=== PATIENT | female | born 1960 | race Caucasian/White ===

== ENCOUNTER 2017-04-17 11:40 | Emergency (ER) | payer OTHER ==
[~2017-04-17] VITALS: Ht 167.6 cm; Wt 97.3 kg
[2017-04-17] MEDS ORDERED: ENAL2.5T PO (11:54)
[2017-04-17] MEDS ORDERED: HYDR12.55 PO (11:54)
[2017-04-17] MEDS ORDERED: OMEP10CASR PO (11:54)
[2017-04-17] MEDS ORDERED: METO37.5 PO (11:55)
[2017-04-17 13:41] LABS: MEAN CORPUSCULAR HEMOGLOBIN 35.1 pg (27.0-33.0); MEAN CORPUSCULAR HGB CONC 35.5 g/dl (32.0-36.5); MEAN CORPUSCULAR VOLUME 98.9 fl (80.0-96.0); RED CELL DISTRIBUTION WIDTH 13.9 % (11.5-14.5); WHITE BLOOD COUNT 6.3 K/mm3 (4.0-10.0)
[2017-04-17 14:05] LABS: CONTROL LINE HCG INT CTR LINE PRESENT
[2017-04-17 14:19] LABS: ALBUMIN 4.2 GM/DL (3.2-5.2); ALBUMIN/GLOBULIN RATIO 1.14 (1.00-1.93); ALKALINE PHOSPHATASE 131 U/L (45-117); ALT/SGPT 26 U/L (12-78); ANION GAP 11 MEQ/L (8-16); AST/SGOT 28 U/L (15-37); BILIRUBIN,DIRECT 0.4 MG/DL (0.0-0.2); BILIRUBIN,TOTAL 1.4 MG/DL (0.2-1.0); BLOOD UREA NITROGEN 10 MG/DL (7-18); CALCIUM LEVEL 9.5 MG/DL (8.5-10.1); CARBON DIOXIDE LEVEL 26 MEQ/L (21-32); CHLORIDE LEVEL 91 MEQ/L (98-107); CREATININE FOR GFR 0.92 MG/DL (0.55-1.02); GLOMERULAR FILTRATION RATE > 60.0 (>51); GLUCOSE, FASTING 153 MG/DL (70-105); POTASSIUM SERUM 3.7 MEQ/L (3.5-5.1); SODIUM LEVEL 128 MEQ/L (136-145); T UPTAKE 34 % (30-39); THYROXINE (T4) 8.2 UG/DL (4.5-12.0); TOTAL PROTEIN 7.9 GM/DL (6.4-8.2)
--- NOTE | 2017-04-17 15:11 | REP ---
Chest two views HISTORY: Weakness Comparison: 10/21/2008 The lungs are clear. The heart is normal in size. The pulmonary vasculature is normal in appearance. The bony structure is intact. IMPRESSION: No acute disease. Signed by Pawel Dubois MD 04/17/2017 03:03 P
[2017-04-17] MEDS ORDERED: HYDR-3363 PO ×2 (15:16→15:51)
[2017-04-17 15:33] LABS: METHADONE URINE NEGATIVE (NEGATIVE)
[2017-04-17 16:03] VITALS: BP 160/100
== END 2017-04-17 16:04 | disposition home or self-care (01) ==
LOC: M ED 11:40
DX: F41.9 Anxiety disorder, unspecified (principal); G47.00 Insomnia, unspecified; E87.1 Hypo-osmolality and hyponatremia; D69.3 Immune thrombocytopenic purpura; M54.9 Dorsalgia, unspecified; I10 Essential (primary) hypertension; J45.909 Unspecified asthma, uncomplicated; Z87.891 Personal history of nicotine dependence; Z79.899 Other long term (current) drug therapy
CPT/HCPCS: 36415; 71020; 80048; 80076; 80307; 84436; 84443; 84479; 84703; 85027; 99282; G0480

== ENCOUNTER → 2018-06-24 | Outpatient (REF) | payer OTHER ==
[2018-06-24 18:13] LABS: BASO % 0.7 % (0.0-1.0); EOS # 0.4 10^3/uL (0.0-0.50); HEMOGLOBIN 10.8 g/dl (12.0-15.5); IMMATURE GRANULOCYTE % 0.5 % (0-3.0); LYMPH # 1.1 10^3/uL (1.5-4.5); LYMPH % 25.5 % (24.0-44.0); MEAN CORPUSCULAR HEMOGLOBIN 34.2 pg (27.0-33.0); MEAN CORPUSCULAR HGB CONC 33.8 g/dl (32.0-36.5); MEAN CORPUSCULAR VOLUME 101.3 fl (80.0-96.0); MONO # 0.5 10^3/uL (0.0-0.8); MONO % 10.9 % (0.0-5.0); NEUTROPHILS # 2.2 10^3/uL (1.8-7.7); NEUTROPHILS % 52.4 % (36.0-66.0); PLATELET COUNT, AUTOMATED 256 10^3/uL (150-450); RED BLOOD COUNT 3.16 10^6/uL (4.00-5.40); RED CELL DISTRIBUTION WIDTH 13.6 % (11.5-14.5); WHITE BLOOD COUNT 4.1 10^3/uL (4.0-10.0)
[2018-06-24 18:22] LABS: ESTIMATED AVERAGE GLUCOSE 131 MG/DL (60-110); HEMOGLOBIN A1c 6.2 %
[2018-06-24 18:24] LABS: ALBUMIN 3.6 GM/DL (3.2-5.2); ALBUMIN/GLOBULIN RATIO 1.13 (1.00-1.93); ALKALINE PHOSPHATASE 95 U/L (45-117); ALT/SGPT 47 U/L (12-78); ANION GAP 6 MEQ/L (8-16); AST/SGOT 60 U/L (7-37); BILIRUBIN,TOTAL 0.4 MG/DL (0.2-1.0); BLOOD UREA NITROGEN 15 MG/DL (7-18); CALCIUM LEVEL 8.6 MG/DL (8.5-10.1); CARBON DIOXIDE LEVEL 30 MEQ/L (21-32); CHLORIDE LEVEL 103 MEQ/L (98-107); CHOLESTEROL LEVEL 180 MG/DL (<200); CHOLESTEROL RISK RATIO 2.195 (<5); CREATININE FOR GFR 0.73 MG/DL (0.55-1.30); FERRITIN 32 NG/ML (8-252); FREE T4 1.01 NG/DL (0.76-1.46); GLOMERULAR FILTRATION RATE > 60.0 (>51); GLUCOSE, FASTING 120 MG/DL (70-100); HDL CHOLESTEROL 82 MG/DL (>40); IRON (FE) 66 UG/DL (50-170); LDL CHOLESTEROL 76 MG/DL (<100); MAGNESIUM LEVEL 2.1 MG/DL (1.8-2.4); NON-HDL-C 98 MG/DL; PERCENT SATURATION 24.8 % (13.2-45.0); POTASSIUM SERUM 4.7 MEQ/L (3.5-5.1); RHEUMATOID FACTOR QUANT < 10.0 IU/ML (<15.0); SODIUM LEVEL 139 MEQ/L (136-145); TOTAL IRON BINDING CAPACITY 266 UG/DL (250-450); TOTAL PROTEIN 6.8 GM/DL (6.4-8.2); TRIGLYCERIDES LEVEL 111 MG/DL (<150)
[2018-06-24 18:29] LABS: FOLATE 1.5 NG/ML
[2018-06-24 18:32] LABS: CREATININE, URINE 28.9 MG/DL; MALB URINE SIEMENS < 5.0 MG/L
[2018-06-24 18:49] LABS: MAU/CREAT RATIO 17.3 MCG/MG (0.0-30.0)
[2018-06-24 20:46] LABS: ERYTHROCYTE SEDIMENTATION RATE 47 mm/hr (0-30)
[2018-06-29 14:13] LABS: ANTI DOUBLE STRAND-DNA AB 1 IU/mL (0-9); ANTINUCLEAR ANTIBODIES DIRECT Positive (Negative); Lyme Disease IgG/IgM Antibodie <0.91 ISR (0.00-0.90); Lyme Disease IgM Ab Quantitati <0.80 index (0.00-0.79); RNP ANTIBODIES <0.2 AI (0.0-0.9); SJOGREN'S ANTI SS-A 5.6 AI (0.0-0.9); SJOGREN'S ANTI SS-B <0.2 AI (0.0-0.9); SMITH ANTIBODIES <0.2 AI (0.0-0.9)
== END ==
LOC: M SFHCCAPE 09:40
DX: M19.90 Unspecified osteoarthritis, unspecified site (principal); I10 Essential (primary) hypertension; E66.01 Morbid (severe) obesity due to excess calories; E11.69 Type 2 diabetes mellitus with other specified complication; Z98.84 Bariatric surgery status; M25.561 Pain in right knee; M25.562 Pain in left knee

== ENCOUNTER → 2018-10-01 | Outpatient (REF) | payer OTHER ==
[~2018-10-01] MED LIST: ENAL2.5T PO; HYDR-3363 PO; HYDR12.55 PO; METO37.5 PO; OMEP10CASR PO
[2018-10-01 13:10] LABS: BASO % 0.7 % (0.0-1.0); EOS # 0.6 10^3/uL (0.0-0.50); HEMATOCRIT 33.8 % (36.0-47.0); HEMOGLOBIN 11.6 g/dl (12.0-15.5); LYMPH # 0.8 10^3/uL (1.5-4.5); LYMPH % 13.5 % (24.0-44.0); MEAN CORPUSCULAR HGB CONC 34.3 g/dl (32.0-36.5); MONO # 0.9 10^3/uL (0.0-0.8); NEUTROPHILS # 3.3 10^3/uL (1.8-7.7); NEUTROPHILS % 58.4 % (36.0-66.0); PLATELET COUNT, AUTOMATED 261 10^3/uL (150-450); RED BLOOD COUNT 3.52 10^6/uL (4.00-5.40); WHITE BLOOD COUNT 5.6 10^3/uL (4.0-10.0)
[2018-10-01 13:19] LABS: ALBUMIN 3.5 GM/DL (3.2-5.2); ALT/SGPT 19 U/L (12-78); BILIRUBIN,TOTAL 0.5 MG/DL (0.2-1.0); BLOOD UREA NITROGEN 15 MG/DL (7-18); CALCIUM LEVEL 8.8 MG/DL (8.5-10.1); CARBON DIOXIDE LEVEL 29 MEQ/L (21-32); CHLORIDE LEVEL 94 MEQ/L (98-107); CREATININE FOR GFR 0.78 MG/DL (0.55-1.30); GLOMERULAR FILTRATION RATE > 60.0 (>51); GLUCOSE, FASTING 129 MG/DL (70-100); POTASSIUM SERUM 4.8 MEQ/L (3.5-5.1); SODIUM LEVEL 132 MEQ/L (136-145); TOTAL PROTEIN 6.9 GM/DL (6.4-8.2)
[2018-10-01 13:29] LABS: TOTAL 25(OH) VITAMIN D 6.2 NG/ML (30.0-100.0); VITAMIN B12 LEVEL 375 PG/ML
[2018-10-01 13:30] LABS: FOLATE > 24.0 NG/ML
[2018-10-01 13:40] LABS: HEMOGLOBIN A1c 6.8 %
== END ==
LOC: M SFHCADAM 08:36
PROVIDERS: ATTEND Physician Assistant Medical
DX: I10 Essential (primary) hypertension (principal); D52.8 Other folate deficiency anemias; D51.8 Other vitamin B12 deficiency anemias; E11.69 Type 2 diabetes mellitus with other specified complication; E55.9 Vitamin D deficiency, unspecified; D53.9 Nutritional anemia, unspecified

== ENCOUNTER → 2019-08-05 | Outpatient (REF) | payer BC ==
[2019-08-05 19:31] LABS: CALCIUM LEVEL 8.4 MG/DL (8.8-10.2); CREATININE FOR GFR 1.13 MG/DL (0.55-1.30); GLOMERULAR FILTRATION RATE 52.3 (>45); POTASSIUM SERUM 4.4 MEQ/L (3.5-5.1)
[2019-08-05 19:32] LABS: ALBUMIN 3.5 GM/DL (3.2-5.2); BILIRUBIN,TOTAL 0.3 MG/DL (0.2-1.0); CHOLESTEROL RISK RATIO 2.523 (<5); FREE T4 0.93 NG/DL (0.76-1.46); THYROID STIMULATING HORMONE 1.47 uIU/ML (0.358-3.740)
[2019-08-05 19:33] LABS: FOLATE 16.4 NG/ML
[2019-08-05 19:34] LABS: BASO % 0.6 % (0.0-1.0); EOS # 0.4 10^3/uL (0.0-0.5); EOS % 5.9 % (0.0-3.0); HEMATOCRIT 34.4 % (36.0-47.0); HEMOGLOBIN 10.9 g/dl (12.0-15.5); LYMPH # 1.2 10^3/uL (1.5-5.0); LYMPH % 18.5 % (24.0-44.0); MEAN CORPUSCULAR HEMOGLOBIN 30.8 pg (27.0-33.0); MEAN CORPUSCULAR HGB CONC 31.7 g/dl (32.0-36.5); MEAN CORPUSCULAR VOLUME 97.2 fl (80.0-96.0); MONO # 0.8 10^3/uL (0.0-0.8); MONO % 12.2 % (0.0-5.0); NEUTROPHILS # 4.2 10^3/uL (1.5-8.5); NEUTROPHILS % 62.5 % (36.0-66.0); PLATELET COUNT, AUTOMATED 284 10^3/uL (150-450); RED BLOOD COUNT 3.54 10^6/uL (4.00-5.40); WHITE BLOOD COUNT 6.7 10^3/uL (4.0-10.0)
[2019-08-05 20:52] LABS: HEMOGLOBIN A1c 7.1 %; MALB URINE SIEMENS 9.9 MG/L; MAU/CREAT RATIO 6.3 MCG/MG (0.0-30.0)
== END ==
LOC: M SFHCADAM 16:25
PROVIDERS: ATTEND Physician Assistant Medical
DX: I10 Essential (primary) hypertension (principal); E11.69 Type 2 diabetes mellitus with other specified complication; D51.8 Other vitamin B12 deficiency anemias; E55.9 Vitamin D deficiency, unspecified; D52.8 Other folate deficiency anemias

== ENCOUNTER → 2019-08-17 | Outpatient (CLI) | payer BC ==
[2019-08-17 20:24] LABS: PERCENT SATURATION 14.3 % (13.2-45.0)
== END ==
LOC: M WUC 16:35
PROVIDERS: ATTEND Physician Assistant Medical
DX: D51.8 Other vitamin B12 deficiency anemias (principal)

== ENCOUNTER → 2020-02-06 | Outpatient (REF) | payer BC | LOC: M SFHCADAM 13:44 | PROVIDERS: ATTEND Physician Assistant Medical | DX: D51.9 Vitamin B12 deficiency anemia, unspecified (principal) ==

== ENCOUNTER → 2020-02-17 | Outpatient (CLI) | payer BC ==
--- NOTE | 2020-02-17 13:49 | REP ---
REASON: Atraumatic bilateral shoulder pain. Three views of the right shoulder show moderate to severe hypertrophic degenerative changes seen involving the acromioclavicular joint with asymmetric narrowing and osteophytosis. The glenohumeral relationship is within normal limits. There is no acute fracture, dislocation, or subluxation. IMPRESSION: AC joint DJD. Three views of the left shoulder show more mild-appearing degenerative changes involving the acromioclavicular joint. The glenohumeral relationship is within normal limits. There is no fracture, dislocation, or subluxation. IMPRESSION: Chronic changes, as described above. Electronically Signed by Mando Johnston DO 02/17/2020 02:05 P
--- NOTE | 2020-02-17 13:55 | REP ---
REASON: Atraumatic bilateral hip pain . PRIORS: None. There is mild asymmetric hip joint space narrowing which appears symmetric bilaterally. There is no acute fracture, dislocation, or subluxation. There is no evidence of significant buttressing. Seen in the soft tissues left hip trochanteric region found best on the frog-lateral view, there is a amorphous calcification measuring 2.9 x 1.2 cm. IMPRESSION: 1. Bilateral hip degenerative changes as described above. 2. Calcifications in the soft tissues left hip as described above, possibly secondary to chronic trochanteric tendinobursitis. Consider followup with MRI. Electronically Signed by Mando Johnston DO 02/17/2020 02:05 P
--- NOTE | 2020-02-17 14:03 | REP ---
REASON: Bilateral pain. PRIORS: None. There is heavy tricompartmental marginal osteophytosis bilaterally seen in conjunction with rather severe appearing patellofemoral joint space narrowing asymmetrically bilaterally right greater than left. There is bilateral medial compartmental narrowing, which is mild to moderate with minimal lateral compartmental narrowing seen bilaterally. There is no evidence of an acute fracture. IMPRESSION: Chronic changes seen bilaterally as described above. Electronically Signed by Mando Johnston DO 02/17/2020 02:05 P
== END ==
LOC: M ADAMS 11:03
PROVIDERS: ATTEND Physician Assistant Medical
DX: E11.69 Type 2 diabetes mellitus with other specified complication (principal); M25.551 Pain in right hip; M25.552 Pain in left hip; M17.0 Bilateral primary osteoarthritis of knee; M79.89 Other specified soft tissue disorders; M25.761 Osteophyte, right knee; M25.762 Osteophyte, left knee; M19.012 Primary osteoarthritis, left shoulder

== ENCOUNTER → 2020-02-17 | Outpatient (REF) | payer BC ==
[2020-02-17 13:41] LABS: ALBUMIN 3.4 GM/DL (3.2-5.2); ALT/SGPT 28 U/L (12-78); BILIRUBIN,TOTAL 0.4 MG/DL (0.2-1.0); BLOOD UREA NITROGEN 21 MG/DL (7-18); C REACTIVE PROTEIN QUANTITATIV < 0.30 MG/DL (0.00-0.30); CALCIUM LEVEL 8.7 MG/DL (8.8-10.2); CARBON DIOXIDE LEVEL 27 MEQ/L (21-32); CHLORIDE LEVEL 105 MEQ/L (98-107); CREATININE FOR GFR 0.95 MG/DL (0.55-1.30); GLOMERULAR FILTRATION RATE > 60.0 (>45); GLUCOSE, FASTING 139 MG/DL (70-100); POTASSIUM SERUM 5.1 MEQ/L (3.5-5.1); RHEUMATOID FACTOR QUANT < 10.0 IU/ML (<15.0); SODIUM LEVEL 137 MEQ/L (136-145); TOTAL PROTEIN 6.7 GM/DL (6.4-8.2)
[2020-02-17 15:26] LABS: HEMOGLOBIN A1c 8.4 %
[2020-02-19 00:06] LABS: ANA (HEP2) Negative (.); Lyme Disease IgG/IgM Antibodie <0.91 ISR (0.00-0.90); Lyme Disease IgM Ab Quantitati <0.80 index (0.00-0.79)
== END ==
LOC: M SFHCADAM 10:59
PROVIDERS: ATTEND Physician Assistant Medical
DX: E11.69 Type 2 diabetes mellitus with other specified complication (principal); I10 Essential (primary) hypertension; D51.8 Other vitamin B12 deficiency anemias; M25.511 Pain in right shoulder; M25.512 Pain in left shoulder; M25.551 Pain in right hip; M25.552 Pain in left hip; M25.561 Pain in right knee; M25.562 Pain in left knee

== ENCOUNTER → 2020-09-17 | Outpatient (CLI) | payer SELFPAY ==
[~2020-09-17] MED LIST changes: +ENAL1TAB46 PO; -ENAL2.5T PO
== END ==
LOC: M LABSMTC 11:01
PROVIDERS: ATTEND Pediatrics
DX: Z20.828 Contact with and (suspected) exposure to other viral communicable diseases (principal)

== ENCOUNTER → 2021-09-10 | Outpatient (REF) | payer BC ==
[2021-09-10 16:26] LABS: HEMOGLOBIN A1c 6.4 %
[2021-09-10 16:44] LABS: ALBUMIN 3.5 GM/DL (3.2-5.2); ALT/SGPT 23 U/L (12-78); BILIRUBIN,TOTAL 0.6 MG/DL (0.2-1.0); BLOOD UREA NITROGEN 17 MG/DL (7-18); CALCIUM LEVEL 9.3 MG/DL (8.8-10.2); CARBON DIOXIDE LEVEL 27 MEQ/L (21-32); CHLORIDE LEVEL 101 MEQ/L (98-107); CHOLESTEROL LEVEL 192 MG/DL (<200); CHOLESTEROL RISK RATIO 2.042 (<5); CREATININE FOR GFR 0.89 MG/DL (0.55-1.30); GLOMERULAR FILTRATION RATE > 60.0 (>45); GLUCOSE, FASTING 138 MG/DL (70-100); HDL CHOLESTEROL 94 MG/DL (>40); LDL CHOLESTEROL 84 MG/DL (<100); NON-HDL-C 98 MG/DL; POTASSIUM SERUM 4.1 MEQ/L (3.5-5.1); SODIUM LEVEL 135 MEQ/L (136-145); TOTAL PROTEIN 7.1 GM/DL (6.4-8.2); TRIGLYCERIDES LEVEL 70 MG/DL (<150)
[2021-09-10 16:47] LABS: TOTAL 25(OH) VITAMIN D 31.5 NG/ML (30.0-100.0); VITAMIN B12 LEVEL 1476 PG/ML
[2021-09-10 16:48] LABS: CREATININE, URINE 63.7 MG/DL; FOLATE 2.7 NG/ML; MALB URINE SIEMENS 20.4 MG/L
== END ==
LOC: M SFHCADAM 08:18
PROVIDERS: ATTEND Physician Assistant Medical
DX: E11.69 Type 2 diabetes mellitus with other specified complication (principal); I10 Essential (primary) hypertension; D51.8 Other vitamin B12 deficiency anemias

== ENCOUNTER → 2022-12-05 | Outpatient (REF) | payer BC ==
[2022-12-05 13:24] LABS: ALBUMIN 3.6 G/DL (3.2-5.2); ALKALINE PHOSPHATASE 76 U/L (46-116); ALT/SGPT 15 U/L (7.0-40); AST/SGOT 16 U/L (<34); BILIRUBIN,TOTAL 0.6 MG/DL (0.3-1.2); BLOOD UREA NITROGEN 23 MG/DL (9-23); CALCIUM LEVEL 8.8 MG/DL (8.3-10.6); CARBON DIOXIDE LEVEL 26 MMOL/L (20-31); CHLORIDE LEVEL 102 MMOL/L (98-107); CHOLESTEROL LEVEL 177 MG/DL (<200); CREATININE FOR GFR 0.94 MG/DL (0.55-1.30); GLOMERULAR FILTRATION RATE > 60.0 (>45); GLUCOSE, FASTING 114 MG/DL (74-106); HDL CHOLESTEROL 117.8 MG/DL (>40); LDL CHOLESTEROL 48.8 MG/DL (<100); NON-HDL-C 59.2 MG/DL; POTASSIUM SERUM 4.3 MMOL/L (3.5-5.1); SODIUM LEVEL 135 MMOL/L (136-145); TOTAL PROTEIN 6.6 G/DL (5.7-8.2); TRIGLYCERIDES LEVEL 52 MG/DL (<150)
[2022-12-05 13:26] LABS: THYROID STIMULATING HORMONE 1.408 uIU/ML (0.55-4.78)
[2022-12-05 13:27] LABS: FOLATE 20.4 NG/ML (>5.4); VITAMIN B12 LEVEL 369 PG/ML (211-911)
== END ==
LOC: M SFHCADAM 08:56
PROVIDERS: ATTEND Physician Assistant Medical
DX: D52.8 Other folate deficiency anemias (principal); D51.8 Other vitamin B12 deficiency anemias; F10.20 Alcohol dependence, uncomplicated; E11.65 Type 2 diabetes mellitus with hyperglycemia

== ENCOUNTER → 2023-09-17 | Outpatient (REF) | payer BC ==
[2023-09-17 15:13] LABS: BASO % 0.7 % (0.0-1.0); EOS # 0.4 10^3/uL (0.0-0.5); EOS % 5.9 % (0.0-3.0); HEMATOCRIT 35.6 % (36.0-47.0); HEMOGLOBIN 11.2 g/dl (12.0-15.5); LYMPH # 1.3 10^3/uL (1.5-5.0); LYMPH % 22.6 % (24.0-44.0); MEAN CORPUSCULAR HGB CONC 31.5 g/dl (32.0-36.5); MEAN CORPUSCULAR VOLUME 98.6 fl (80.0-96.0); MONO # 0.7 10^3/uL (0.0-0.8); NEUTROPHILS # 3.5 10^3/uL (1.5-8.5); NEUTROPHILS % 59.5 % (36.0-66.0); PLATELET COUNT, AUTOMATED 257 10^3/uL (150-450); RED BLOOD COUNT 3.61 10^6/uL (4.00-5.40); WHITE BLOOD COUNT 5.9 10^3/uL (4.0-10.0)
[2023-09-17 15:39] LABS: HEMOGLOBIN A1c 6.6 % (4.0-6.0)
[2023-09-17 15:44] LABS: MAU/CREAT RATIO 4.1 MCG/MG (0.0-30.0)
[2023-09-17 15:46] LABS: ALBUMIN 3.7 G/DL (3.2-5.2); ALKALINE PHOSPHATASE 96 U/L (46-116); ALT/SGPT 30 U/L (7.0-40); AST/SGOT 17 U/L (<34); BILIRUBIN,TOTAL 0.5 MG/DL (0.3-1.2); BLOOD UREA NITROGEN 22 MG/DL (9-23); CARBON DIOXIDE LEVEL 25 MMOL/L (20-31); CHLORIDE LEVEL 105 MMOL/L (98-107); CHOLESTEROL LEVEL 202 MG/DL (<200); CHOLESTEROL RISK RATIO 2.45 (<5); CREATININE FOR GFR 0.85 MG/DL (0.55-1.30); GLOMERULAR FILTRATION RATE > 60.0 (>45); GLUCOSE, FASTING 158 MG/DL (74-106); HDL CHOLESTEROL 82.2 MG/DL (>40); LDL CHOLESTEROL 99.8 MG/DL (<100); NON-HDL-C 119.8 MG/DL; POTASSIUM SERUM 4.4 MMOL/L (3.5-5.1); SODIUM LEVEL 138 MMOL/L (136-145); TOTAL PROTEIN 6.9 G/DL (5.7-8.2); TRIGLYCERIDES LEVEL 100 MG/DL (<150)
[2023-09-17 15:48] LABS: FOLATE 14.9 NG/ML (>5.4); THYROID STIMULATING HORMONE 1.879 uIU/ML (0.55-4.78); TOTAL 25(OH) VITAMIN D 16.4 NG/ML (20.0-100.0)
[2023-09-17 15:49] LABS: VITAMIN B12 LEVEL 311 PG/ML (211-911)
== END ==
LOC: M SFHCADAM 10:48
PROVIDERS: ATTEND Physician Assistant Medical
DX: E11.69 Type 2 diabetes mellitus with other specified complication (principal); J45.20 Mild intermittent asthma, uncomplicated; E55.9 Vitamin D deficiency, unspecified; D52.8 Other folate deficiency anemias; D51.8 Other vitamin B12 deficiency anemias

== ENCOUNTER → 2024-04-14 | Outpatient (REF) | payer BC ==
[2024-04-14 12:45] LABS: BASO % 0.7 % (0.0-1.0); EOS # 0.2 10^3/uL (0.0-0.5); EOS % 4.2 % (0.0-3.0); HEMATOCRIT 33.3 % (36.0-47.0); HEMOGLOBIN 10.7 g/dl (12.0-15.5); LYMPH % 17.7 % (24.0-44.0); MEAN CORPUSCULAR HEMOGLOBIN 31.5 pg (27.0-33.0); MEAN CORPUSCULAR HGB CONC 32.1 g/dl (32.0-36.5); MEAN CORPUSCULAR VOLUME 97.9 fl (80.0-96.0); MONO # 0.6 10^3/uL (0.0-0.8); MONO % 11.2 % (2.0-8.0); NEUTROPHILS # 3.8 10^3/uL (1.5-8.5); NEUTROPHILS % 65.7 % (36.0-66.0); PLATELET COUNT, AUTOMATED 263 10^3/uL (150-450); WHITE BLOOD COUNT 5.7 10^3/uL (4.0-10.0)
[2024-04-14 12:59] LABS: HEMOGLOBIN A1c 7.6 % (4.0-6.0)
[2024-04-14 13:18] LABS: TOTAL 25(OH) VITAMIN D 25.6 NG/ML (20.0-100.0)
[2024-04-14 13:19] LABS: ALBUMIN 3.4 G/DL (3.2-5.2); ALKALINE PHOSPHATASE 129 U/L (46-116); ALT/SGPT 15 U/L (7.0-40); AST/SGOT < 8 U/L (<34); BILIRUBIN,TOTAL 0.5 MG/DL (0.3-1.2); BLOOD UREA NITROGEN 18 MG/DL (9-23); CALCIUM LEVEL 9.2 MG/DL (8.3-10.6); CARBON DIOXIDE LEVEL 26 MMOL/L (20-31); CHLORIDE LEVEL 106 MMOL/L (98-107); CHOLESTEROL LEVEL 185 MG/DL (<200); CHOLESTEROL RISK RATIO 2.82 (<5); CREATININE FOR GFR 0.84 MG/DL (0.55-1.30); GLOMERULAR FILTRATION RATE > 60.0 (>45); GLUCOSE, FASTING 180 MG/DL (74-106); HDL CHOLESTEROL 65.5 MG/DL (>40); LDL CHOLESTEROL 100.3 MG/DL (<100); MAGNESIUM LEVEL 1.8 MG/DL (1.8-2.4); NON-HDL-C 119.5 MG/DL; POTASSIUM SERUM 4.7 MMOL/L (3.5-5.1); SODIUM LEVEL 138 MMOL/L (136-145); TOTAL PROTEIN 6.5 G/DL (5.7-8.2); TRIGLYCERIDES LEVEL 96 MG/DL (<150)
[2024-04-14 13:21] LABS: CREATININE, URINE 46.3 MG/DL
[2024-04-19 10:07] LABS: ANA PATTERN Nuclear, Speckled (NEGATIVE); ANA PATTERN 2 Cytoplasmic; ANA SCREEN, IFA POSITIVE (NEGATIVE); ANA TITER 1:40 titer (<1:40); ANA TITER 2 1:40 titer (NEGATIVE)
[2024-04-20 17:56] LABS: DRVV SCREEN 36.7 SECONDS
[2024-04-20 18:16] LABS: PTT LUPUS TYPE ANTICOAG SCREEN 0.97 (0-1.20)
== END ==
LOC: M SFHCADAM 09:24
PROVIDERS: ATTEND Physician Assistant Medical
DX: E11.69 Type 2 diabetes mellitus with other specified complication (principal); I10 Essential (primary) hypertension; K21.9 Gastro-esophageal reflux disease without esophagitis; E55.9 Vitamin D deficiency, unspecified; D51.8 Other vitamin B12 deficiency anemias; H04.129 Dry eye syndrome of unspecified lacrimal gland; R68.2 Dry mouth, unspecified